=== PATIENT | female | born 1980 | race African-American/Black ===

== ENCOUNTER 2017-05-26 00:40 | Emergency (ER) | payer OTHER ==
[2017-05-26 01:13] VITALS: PULSE 92; TEMP 98.3; BMI 31.8
--- NOTE | 2017-05-26 01:17 | PDOC ---
History of Present Illness - General History Source: Patient Exam Limitations: No Limitations - History of Present Illness Initial Comments: 05/26/17 01:23 The patient is a 37 year old female who is a smoker, with no significant past medical history, who presents to the ED with complaints of chest pain. Pts pain is located at the left sternal border and radiates down her left arm. She does report having shortness of breath prior to presentation. On exam, patient states that it is difficult for her to take a deep breath. She denies taking any oral contraceptives. She reports having a cough productive of yellow sputum. She denies any fever, chills, nausea, vomiting, diarrhea, or abdominal pain. She denies recent travel or sick contacts. <Becky Parish - Last Filed: 05/26/17 01:23> - General History Source: Patient <Gerardo Lan - Last Filed: 05/26/17 02:32> - General Chief Complaint: Pain, Acute Stated Complaint: LEFT ARM PAIN,CHEST PAIN Time Seen by Provider: 05/26/17 01:13 Past History <Becky Parish - Last Filed: 05/26/17 01:23> - Past Medical History Anemia: No Asthma: No Cancer: No Cardiac Disorders: No CVA: No COPD: No CHF: No Dementia: No Diabetes: Yes GI Disorders: No Disorders: No HTN: No Hypercholesterolemia: No Liver Disease: No Seizures: No Thyroid Disease: No - Surgical History Abdominal Surgery: No Appendectomy: No Cardiac Surgery: No Cholecystectomy: No Lung Surgery: No Neurologic Surgery: No Orthopedic Surgery: No - Immunization History Immunization Up to Date: Yes - Psycho/Social/Smoking Cessation Hx Anxiety: No Suicidal Ideation: No Smoking Status: Yes Smoking History: Never smoked Have you smoked in the past 12 months: No Number of Cigarettes Smoked Daily: 20 Cigars Per Day: 0 Information on smoking cessation initiated: No 'Breaking Loose' booklet given: 09/27/14 Hx Alcohol Use: No Drug/Substance Use Hx: No Substance Use Type: Alcohol Hx Substance Use Treatment: No <Gerardo Lan - Last Filed: 05/26/17 02:32> - Past Medical History Allergies/Adverse Reactions: Allergies Allergy/AdvReac Type Severity Reaction Status Date / Time No Known Drug Allergies Allergy Verified 05/26/17 01:12 Home Medications: Ambulatory Orders Guaifenesin AC [Robitussin AC] 10 ml PO Q8H #1 bottle MDD 40 07/25/16 Prednisone [Deltasone -] 60 mg PO DAILY #12 tablet 07/25/16 Azithromycin [Zithromax 250mg Tablets -] 250 mg PO UTDICT #6 tab 05/26/17 Prednisone [Deltasone -] 40 mg PO DAILY #10 tablet 05/26/17 Review of Systems - Review of Systems Able to Perform ROS?: Yes Comments:: 05/26/17 01:24 CONSTITUTIONAL: Absent: fever, chills, diaphoresis, generalized weakness, malaise, loss of appetite HEENT: Absent: rhinorrhea, nasal congestion, throat pain, throat swelling, difficulty swallowing, mouth swelling, ear pain, eye pain, visual Changes CARDIOVASCULAR: Present: chest pain Absent: syncope, palpitations, irregular heart rate, lightheadedness, peripheral edema RESPIRATORY: Present: shortness of breath, cough Absent: dyspnea with exertion, orthopnea, wheezing, stridor, hemoptysis GASTROINTESTINAL: Absent: abdominal pain, abdominal distension, nausea, vomiting, diarrhea, constipation, melena, hematochezia GENITOURINARY: Absent: dysuria, frequency, urgency, hesitancy, hematuria, flank pain, genital pain MUSCULOSKELETAL: Present: left arm pain Absent: arthralgia, joint swelling SKIN: Absent: rash, itching, pallor HEMATOLOGIC/IMMUNOLOGIC: Absent: easy bleeding, easy bruising, lymphadenopathy, frequent infections ENDOCRINE: Absent: unexplained weight gain, unexplained weight loss, heat intolerance, cold intolerance NEUROLOGIC: Absent: headache, focal weakness or paresthesias, dizziness, unsteady gait, seizure, mental status changes, bladder or bowel incontinence PSYCHIATRIC: Absent: anxiety, depression, suicidal or homicidal ideation, hallucinations. <Becky Parish - Last Filed: 05/26/17 01:23> *Physical Exam - Vital Signs Last Vital Signs Temp Pulse Resp BP Pulse Ox 98.3 F 92 H 14 128/107 99 05/26/17 01:12 05/26/17 01:12 05/26/17 01:12 05/26/17 01:12 05/26/17 01:12 - Physical Exam Comments: 05/26/17 01:26 GENERAL: Well developed, well nourished. Awake and alert. No acute distress. HEENT: Normocephalic, atraumatic. PERRLA, EOMI. No conjunctival pallor. Sclera are non- icteric. Moist mucous membranes. Oropharynx is clear. NECK: Supple. Full ROM. No JVD. Carotid pulses 2+ and symmetric, without bruits. No thyromegaly. No lymphadenopathy. CARDIOVASCULAR: Regular rate and rhythm. No murmurs, rubs, or gallops. Distal pulses are 2+ and symmetric. PULMONARY: +Bilateral wheezing and rhonchi but greatest to left hemithorax than to the right. ABDOMINAL: Soft. Non-tender. Non-distended. No rebound or guarding. No organomegaly. Normoactive bowel sounds. MUSCULOSKELETAL Normal range of motion at all joints. No bony deformities or tenderness. No CVA tenderness. EXTREMITIES: No cyanosis. No clubbing. No edema. No calf tenderness. SKIN: Warm and dry. Normal capillary refill. No rashes. No jaundice. NEUROLOGICAL: Alert, awake, appropriate. PSYCHIATRIC: Cooperative. Good eye contact. Appropriate mood and affect. <Becky Parish - Last Filed: 05/26/17 01:23> - Vital Signs Last Vital Signs Temp Pulse Resp BP Pulse Ox 98.3 F 92 H 14 128/107 99 05/26/17 01:12 05/26/17 01:12 05/26/17 01:12 05/26/17 01:12 05/26/17 01:12 <Gerardo Lan - Last Filed: 05/26/17 02:32> Heart Score/ECG Review - ECG Intrepretation Comment:: 05/26/17 01:28 EKG was reviewed by Dr. Lan at 1:15. Impression: Normal sinus rhythm. <Becky Parish - Last Filed: 05/26/17 01:23> ED Treatment Course - LABORATORY CBC & Chemistry Diagram: 05/26/17 01:30 05/26/17 01:30 <Gerardo Lan - Last Filed: 05/26/17 02:32> Medical Decision Making - Medical Decision Making 05/26/17 02:32 Dr. Lan: The scribe's documentation has been prepared under my direction and personally reviewed by me in its entirery. I confirm that the note above accurately reflects all work, treatment, procedures, and medical decision making performed by me. <Gerardo Lan - Last Filed: 05/26/17 02:32> *DC/Admit/Observation/Transfer - Attestations Scribe Attestion: 05/26/17 01:28 Documentation prepared by Becky Parish, acting as medical staff coordinator for Gerardo Lan MD. <Becky Parish - Last Filed: 05/26/17 01:23> - Discharge Dispostion Admit: No <Gerardo Lan - Last Filed: 05/26/17 02:32> Diagnosis at time of Disposition: Bronchitis - Discharge Dispostion Disposition: HOME Condition at time of disposition: Improved - Referrals Referrals: Kailee Carey MD [Primary Care Provider] - - Patient Instructions Printed Discharge Instructions: DI for Acute Bronchitis
[2017-05-26] MEDS ORDERED: predniSONE 20 MG TABLET (UD) PO ONE (01:19)
[2017-05-26] MEDS ORDERED: ALBUTEROL SO4 2.5/IPRATROPIUM 0.5 INH SOL 3 ML VIAL.NEB. NEB STA ×2 (01:19)
[2017-05-26] MEDS ORDERED: MAGNESIUM SULF 50% (8.12 MEQ/2 ML-1 GM VIAL) IVPB ONE (01:25)
[2017-05-26] MEDS ORDERED: methylPREDNISolone NA SUCC 125 MG/2 ML VIAL IVPB ONE (01:25)
[2017-05-26] MEDS ORDERED: MAGNESIUM SULF 50% (8.12 MEQ/2 ML-1 GM VIAL) ONE (01:37)
[2017-05-26] MEDS ORDERED: methylPREDNISolone NA SUCC 125 MG/2 ML VIAL ONE (01:37)
[2017-05-26 01:49] LABS: BASOPHIL 0.6 % (0-2.0); EOSINOPHIL 4.5 % (0-4.5); MCH 27.4 pg (25.7-33.7); MCHC 32.4 g/dl (32.0-36.0); MEAN CELL VOLUME 84.5 fl (80-96); MEAN PLT VOLUME 8.1 fl (7.5-11.1); NEUTROPHILS 63.1 % (42.8-82.8); PLATELET COUNT 336 K/MM3 (134-434); RDW 13.9 % (11.6-15.6); WHITE BLOOD COUNT 10.6 K/mm3 (4.0-10.0)
[2017-05-26 02:11] LABS: ANION GAP 9 (8-16); CALCIUM 8.6 mg/dL (8.5-10.1); CO2 26 mmol/L (21-32); CREATININE 0.8 mg/dL (0.55-1.02); GLUCOSE,RANDOM 112 mg/dL (74-106)
[2017-05-26 02:13] LABS: TROPONIN I < 0.02 ng/ml (0.00-0.05)
[2017-05-26] MEDS ORDERED: AZITHROMYCIN 250 MG TABLET PO STA (02:31)
[2017-05-26] MEDS ORDERED: AZITHROMYCIN 250 MG TABLET ONE (02:36)
[2017-05-26 02:42] VITALS: BP 138/92
--- NOTE | 2017-05-26 14:46 | EKG ---
Test Reason : Blood Pressure : / mmHG Vent. Rate : 089 BPM Atrial Rate : 089 BPM P-R Int : 162 ms QRS Dur : 076 ms QT Int : 364 ms P-R-T Axes : 059 074 067 degrees QTc Int : 442 ms POOR DATA QUALITY, INTERPRETATION MAY BE ADVERSELY AFFECTED NORMAL SINUS RHYTHM NORMAL ECG WHEN COMPARED WITH ECG OF 22-AUG-2015 08:12, NO SIGNIFICANT CHANGE WAS FOUND Confirmed by MEMO CASTILLO MD ([id number]) on 05/26/2017 2:46:09 PM Referred By: Confirmed By:MEMO CASTILLO MD
== END 2017-05-26 02:42 | disposition home or self-care (01) ==
LOC: JER 00:40
PROC: 3E0F7GC Introduction of Other Therapeutic Substance into Respiratory Tract, Via Natural or Artificial Opening (ICD-10-PCS; principal; 2017-05-26)
PROC: 3E0F7GC Introduction of Other Therapeutic Substance into Respiratory Tract, Via Natural or Artificial Opening (ICD-10-PCS; 2017-05-26)
PROC: 3E033GC Introduction of Other Therapeutic Substance into Peripheral Vein, Percutaneous Approach (ICD-10-PCS; 2017-05-26)
PROC: 3E0333Z Introduction of Anti-inflammatory into Peripheral Vein, Percutaneous Approach (ICD-10-PCS; 2017-05-26)
DX: J40 Bronchitis, not specified as acute or chronic (principal); E11.9 Type 2 diabetes mellitus without complications
CPT/HCPCS: 36415; 71020-TC; 80048; 82550; 84484; 84703; 85025; 93005; 93010; 94640; 96374; 96375; 99282-25

== ENCOUNTER 2017-11-08 21:24 | Emergency (ER) | payer OTHER ==
[2017-11-08 21:37] VITALS: BP 158/92; PULSE 108; TEMP 98.5; BMI 33.5
--- NOTE | 2017-11-08 21:37 | PDOC ---
Rapid Medical Evaluation Time Seen by Provider: 11/08/17 21:31 Medical Evaluation: Allergies Allergy/AdvReac Type Severity Reaction Status Date / Time No Known Drug Allergies Allergy Verified 05/26/17 01:12 11/08/17 21:31 The patient presents with a chief complaint of: cough and wheezing for 2 weeks. Using breathing treatments at home with little relief. Afebrile I have performed a brief in-person evaluation of this patient; Pertinent physical exam findings: Diminished at the bases, RRR I have ordered the following: CXR, urine preg, duoneb The patient will proceed to the ED for further evaluation.
[2017-11-08] MEDS ORDERED: ALBUTEROL SO4 2.5/IPRATROPIUM 0.5 INH SOL 3 ML VIAL.NEB. NEB ONE ×2 (21:38→22:14)
[2017-11-08] MEDS ORDERED: guaiFENesin/CODEINE 10 ML UNIT-DOSE CUPS PO ONE (22:07)
[2017-11-08] MEDS ORDERED: predniSONE 20 MG TABLET (UD) PO ONE (22:07)
[2017-11-08] MEDS ORDERED: predniSONE 20 MG TABLET (UD) ONE (22:10)
--- NOTE | 2017-11-08 22:12 | PDOC ---
History of Present Illness - General Chief Complaint: Asthma Stated Complaint: COUGH Time Seen by Provider: 11/08/17 21:31 History Source: Patient Exam Limitations: No Limitations - History of Present Illness Initial Comments: 11/08/17 22:07 history of asthma no intubations or hospitalizations states cough and cold for one week now with continued cough no fever , speaking clearly. Pt using nebulizer and inhaler at home. Timing/Duration: reports: getting worse Severity: reports: mild Past History - Past Medical History Allergies/Adverse Reactions: Allergies Allergy/AdvReac Type Severity Reaction Status Date / Time No Known Drug Allergies Allergy Verified 11/08/17 21:37 Home Medications: Ambulatory Orders Albuterol Sulfate [Proair H[facility]] [facility] 11/08/17 Glycopyrrolate/Formoterol Fum [Bevespi Aerosphere Inhaler] 10.7 gm [facility] 11/25 Prednisone [Deltasone -] 40 mg PO DAILY #10 tablet 11/08/17 Anemia: No Asthma: No Cancer: No Cardiac Disorders: No CVA: No COPD: No CHF: No Dementia: No Diabetes: Yes GI Disorders: No Disorders: No HTN: No Hypercholesterolemia: No Liver Disease: No Seizures: No Thyroid Disease: No - Surgical History Abdominal Surgery: No Appendectomy: No Cardiac Surgery: No Cholecystectomy: No Lung Surgery: No Neurologic Surgery: No Orthopedic Surgery: No - Immunization History Immunization Up to Date: Yes - Suicide/Smoking/Psychosocial Hx Smoking Status: Yes Smoking History: Never smoked Have you smoked in the past 12 months: No Number of Cigarettes Smoked Daily: 20 Cigars Per Day: 0 Information on smoking cessation initiated: No 'Breaking Loose' booklet given: 09/27/14 Hx Alcohol Use: No Drug/Substance Use Hx: No Substance Use Type: Alcohol Hx Substance Use Treatment: No Respiratory Specific PMHX - Complaint Specific PMHX Bronchitis: Yes Review of Systems - Review of Systems Able to Perform ROS?: Yes Is the patient limited Bahamian proficient: No Constitutional: No: Symptoms Reported HEENTM: No: Symptoms Reported Respiratory: Yes: Symptoms reported, Cough Cardiac (ROS): Yes: Chest Pain *Physical Exam - Vital Signs Last Vital Signs Temp Pulse Resp BP Pulse Ox 98.5 F 108 H 20 158/92 100 11/08/17 21:32 11/08/17 21:32 11/08/17 21:32 11/08/17 21:32 11/08/17 21:32 - Physical Exam General Appearance: Yes: Nourished, Appropriately Dressed HEENT: positive: EOMI, LINDA, Normal ENT Inspection, TMs Normal, Pharynx Normal Neck: negative: Lymphadenopathy (R), Lymphadenopathy (L) Respiratory/Chest: positive: Normal Breath Sounds, Wheezing (exp ). negative: Accessory Muscle Use, Crackles, Rhonchi, Stridor Cardiovascular: positive: Regular Rate Gastrointestinal/Abdominal: positive: Normal Bowel Sounds, Soft Musculoskeletal: positive: Normal Inspection Extremity: positive: Normal Capillary Refill, Normal Inspection, Normal Range of Motion Integumentary: positive: Normal Color, Dry, Warm Neurologic: positive: feed handler II-XII NML intact, Fully Oriented, Alert, Normal Mood/ Affect, Normal Response, Motor Strength 03/12 ED Treatment Course - Medications Given in the ED: ED Medications Discontinued Medications Generic Name Dose Route Start Last Admin Trade Name Freq PRN Reason Stop Dose Admin Albuterol/Ipratropium 1 amp 11/08/17 21:38 11/08/17 21:54 Duoneb - NEB 11/08/17 21:39 1 amp ONCE ONE Administration Medical Decision Making - Medical Decision Making 11/08/17 22:11 cc: cough wheezing for 1 week cough and cold for 2 weeks no fever no vomiting wheezing noted in triage nebulizer given no history of intubations 11/08/17 22:48 pt feels better after the nebulizers wheezing has resolved will dc home with strict follow up this week pt understands the plan of care all questions asked and answered *DC/Admit/Observation/Transfer Diagnosis at time of Disposition: Asthma exacerbation Qualifiers: Asthma severity: mild Asthma persistence: intermittent Qualified Code(s): J45.21 - Mild intermittent asthma with (acute) exacerbation - Discharge Dispostion Disposition: HOME Condition at time of disposition: Improved - Prescriptions Prescriptions: Prednisone [Deltasone -] 40 mg PO DAILY #10 tablet - Referrals Referrals: Kailee Carey MD [Primary Care Provider] - - Patient Instructions Printed Discharge Instructions: Asthma -- Adult Additional Instructions: follow with your doctor this week drink at least 2 liters of water a day next dose prednisone tomorrow use your nebulizer every 4hrs return to ER if any worsening symptoms - Post Discharge Activity
[2017-11-08] MEDS ORDERED: guaiFENesin/CODEINE 5 ML UNIT-DOSE CUPS PO ONE (22:13)
== END 2017-11-08 22:49 | disposition home or self-care (01) ==
LOC: JERFT 21:24
PROC: 3E0F7GC Introduction of Other Therapeutic Substance into Respiratory Tract, Via Natural or Artificial Opening (ICD-10-PCS; principal; 2017-11-08)
DX: J45.21 Mild intermittent asthma with (acute) exacerbation (principal)
CPT/HCPCS: 71046-TC; 84703; 94640; 99281-25

== ENCOUNTER 2018-04-17 15:46 | Emergency (ER) | payer OTHER ==
[2018-04-17 15:59] VITALS: BMI 32.5
--- NOTE | 2018-04-17 16:16 | PDOC ---
History of Present Illness - General Chief Complaint: Headache Stated Complaint: HEADACHE,FREQUENT URINATION. Time Seen by Provider: 04/17/18 16:01 History Source: Patient Exam Limitations: No Limitations - History of Present Illness Initial Comments: CHIEF COMPLAINT: HISTORY OF PRESENT ILLNESS: Vital signs on arrival are notable for pulse of 108. REVIEW OF SYSTEMS: GENERAL/CONSTITUTIONAL: Subjective fever/chills. No weakness. No weight change. HEAD, EYES, EARS, NOSE AND THROAT: No change in vision. No ear pain or discharge. No sore throat. CARDIOVASCULAR: No chest pain or shortness of breath. RESPIRATORY: No cough, wheezing, or hemoptysis. GASTROINTESTINAL: See history of present illness. GENITOURINARY: No dysuria, frequency, or change in urination. MUSCULOSKELETAL: No joint or muscle swelling or pain. No neck or back pain. SKIN: No rash or easy bruising. NEUROLOGIC: No headache, vertigo, loss of consciousness, or loss of sensation. PHYSICAL EXAM: GENERAL: The patient is awake, alert, and fully oriented, in no acute distress. HEAD: Normal with no signs of trauma. ENT: Pupils equal, round and reactive to light, extraocular movements intact, sclera anicteric, conjunctiva clear. Neck supple. LUNGS: Clear to auscultation bilaterally. Normal excursion. No respiratory distress or use of accessory muscles. CV: RRR, S1/S2, no MRG. Cap refill < 2 sec. ABDOMEN: Soft, non-distended, non-tender even to deep palpation, no hepatomegaly or splenomegaly, no masses. EXTREMITIES: Normal range of motion, no edema. NEUROLOGICAL: Normal speech, normal gait. CN II-XII grossly intact. SKIN: Warm, dry, normal turgor, no rashes or lesions noted. Past History - Past Medical History Allergies/Adverse Reactions: Allergies Allergy/AdvReac Type Severity Reaction Status Date / Time sulfamethoxazole Allergy Verified 04/17/18 15:55 [From Bactrim] trimethoprim [From Bactrim] Allergy Verified 04/17/18 15:55 Home Medications: Ambulatory Orders Albuterol Sulfate [Proair Hfa] 8.5 gm [facility] 11/08/17 Glycopyrrolate/Formoterol Fum [Bevespi Aerosphere Inhaler] 10.7 gm [facility] 11/25 predniSONE [Deltasone -] 40 mg PO DAILY #10 tablet 11/08/17 Anemia: No Asthma: No Cancer: No Cardiac Disorders: No CVA: No COPD: No CHF: No Dementia: No Diabetes: Yes (DURING ) GI Disorders: No Disorders: No HTN: No Hypercholesterolemia: No Liver Disease: No Seizures: No Thyroid Disease: No - Surgical History Abdominal Surgery: No Appendectomy: No Cardiac Surgery: No Cholecystectomy: No Lung Surgery: No Neurologic Surgery: No Orthopedic Surgery: No - Immunization History Immunization Up to Date: Yes - Suicide/Smoking/Psychosocial Hx Smoking Status: Yes Smoking History: Current every day smoker Have you smoked in the past 12 months: Yes Number of Cigarettes Smoked Daily: 7 Cigars Per Day: 0 Information on smoking cessation initiated: No 'Breaking Loose' booklet given: 09/27/14 Hx Alcohol Use: No Drug/Substance Use Hx: No Substance Use Type: Alcohol Hx Substance Use Treatment: No *Physical Exam - Vital Signs Last Vital Signs Temp Pulse Resp BP Pulse Ox 98.2 F 89 19 118/76 99 04/17/18 15:55 04/17/18 15:55 04/17/18 15:55 04/17/18 15:55 04/17/18 15:55 Medical Decision Making - Medical Decision Making A/P:
[2018-04-17 16:22] LABS: URINE APPEARANCE CLEAR; URINE BILIRUBIN NEGATIVE (<2.0 mg/dL); URINE BLOOD NEGATIVE (NEGATIVE); URINE COLOR LTYELLOW; URINE GLUCOSE (UA) 2+ (NEGATIVE); URINE KETONE NEGATIVE (NEGATIVE); URINE NITRITE NEGATIVE (NEGATIVE); URINE PROTEIN NEGATIVE (NEGATIVE)
[2018-04-17 16:27] LABS: URINE LEUK ESTERASE 2+ (NEGATIVE)
[2018-04-17 16:28] LABS: EPI CELLS RARE /HPF (FEW); URINE MUCUS RARE
[2018-04-17] MEDS ORDERED: KETOROLAC TROMETHAMINE 30 MG/1 ML VIAL IVPUSH ONE (17:06)
[2018-04-17] MEDS ORDERED: SODIUM CHLORIDE 1,000 ML IV STA (17:06)
--- NOTE | 2018-04-17 17:11 | PDOC ---
History of Present Illness - General Chief Complaint: Headache Stated Complaint: HEADACHE,FREQUENT URINATION. Time Seen by Provider: 04/17/18 16:01 History Source: Patient Exam Limitations: No Limitations - History of Present Illness Initial Comments: 04/17/18 17:00 38-year-old female diagnosed with gestational diabetes 2 years ago presents to the ED with complaints of generalized head pressure along with blurry vision since this morning. Patient states does have same presentation with her migraines which was diagnosed by her PMD Dr. Espinal but states normally takes Motrin eats something and symptoms resolved. When symptoms continue she decided to have her sugar which was noted to be 250. Patient also states the past 2 days has had urinary frequency and increased hunger without lower extremity edema, chest pain, shortness of breath, dizziness, weakness, or change in mentation. Timing/Duration: constant Severity: mild Associated Symptoms: reports: headaches. denies: nausea/vomiting, weakness Past History - Travel Traveled outside of the country in the last 30 days: No - Past Medical History Allergies/Adverse Reactions: Allergies Allergy/AdvReac Type Severity Reaction Status Date / Time sulfamethoxazole Allergy Verified 04/17/18 15:55 [From Bactrim] trimethoprim [From Bactrim] Allergy Verified 04/17/18 15:55 Home Medications: Ambulatory Orders Albuterol Sulfate Inhaler - [Ventolin Hfa Inhaler -] 2 inh PO Q4H PRN 04/17/18 Famotidine [Pepcid] 40 mg PO DAILY 04/17/18 Nitrofurantoin Monohyd/M-Cryst [Macrobid -] 100 mg PO BID #14 capsule 04/17/18 Omeprazole Magnesium [Prilosec Otc] 20 mg PO DAILY 04/17/18 Anemia: No Asthma: No Cancer: No Cardiac Disorders: No CVA: No COPD: No CHF: No Dementia: No Diabetes: Yes (DURING ) GI Disorders: No Disorders: No HTN: No Hypercholesterolemia: No Liver Disease: No Seizures: No Thyroid Disease: No - Surgical History Abdominal Surgery: No Appendectomy: No Cardiac Surgery: No Cholecystectomy: No Lung Surgery: No Neurologic Surgery: No Orthopedic Surgery: No - Immunization History Immunization Up to Date: Yes - Suicide/Smoking/Psychosocial Hx Smoking Status: Yes Smoking History: Current every day smoker Have you smoked in the past 12 months: Yes Number of Cigarettes Smoked Daily: 7 Cigars Per Day: 0 Information on smoking cessation initiated: No 'Breaking Loose' booklet given: 09/27/14 Hx Alcohol Use: No Drug/Substance Use Hx: No Substance Use Type: Alcohol Hx Substance Use Treatment: No Patient Lives Alone: No Lives with/in: spouse/SO Review of Systems - Review of Systems Able to Perform ROS?: No Constitutional: No: Symptoms Reported HEENTM: Yes: Blurred Vision Respiratory: No: Symptoms reported Cardiac (ROS): No: Symptoms Reported ABD/GI: No: Symptoms Reported : No: Symptoms Reported Musculoskeletal: No: Symptoms Reported Integumentary: No: Symptoms Reported Neurological: Yes: Headache. No: Dizziness Endocrine: No: Symptoms Reported Hematologic/Lymphatic: No: Symptoms Reported *Physical Exam - Vital Signs Last Vital Signs Temp Pulse Resp BP Pulse Ox 98.2 F 89 19 118/76 99 04/17/18 15:55 04/17/18 15:55 04/17/18 15:55 04/17/18 15:55 04/17/18 15:55 - Physical Exam General Appearance: Yes: Nourished, Appropriately Dressed. No: Apparent Distress HEENT: positive: EOMI, LINDA, TMs Normal, Pharynx Normal. negative: Pale Conjunctivae Neck: positive: Supple. negative: Decreased range of motion Respiratory/Chest: positive: Lungs Clear, Normal Breath Sounds. negative: Respiratory Distress, Accessory Muscle Use Cardiovascular: positive: Regular Rhythm, Regular Rate. negative: Murmur Gastrointestinal/Abdominal: positive: Soft. negative: Tenderness Extremity: positive: Normal Capillary Refill. negative: Pedal Edema Integumentary: positive: Normal Color, Warm, Moist Neurologic: positive: supervisor diagnostic II-XII NML intact, Normal Mood/Affect, Motor Strength / ED Treatment Course - LABORATORY CBC & Chemistry Diagram: 04/17/18 17:11 04/17/18 17:11 - ADDITIONAL ORDERS Additional order review: Laboratory Results 04/17/18 16:13 Urine Color Ltyellow Urine Appearance Clear Urine pH 7.0 D Ur Specific [place] 1.024 Urine Protein Negative Urine Glucose (UA) 2+ H Urine Ketones Negative Urine Blood Negative Urine Nitrite Negative Urine Bilirubin Negative Urine Urobilinogen 2.0 H Ur Leukocyte Esterase 2+ H Urine WBC (Auto) 24 Urine RBC (Auto) 2 Ur Epithelial Cells Rare Urine Mucus Rare Medical Decision Making - Medical Decision Making 04/17/18 17:12 Patient here for evaluation of polyuria and polydipsia along with intermittent blurry vision and headaches for the past day. Patient states does have blurry vision and headaches with her migraines which was diagnosed a few years ago by Dr. Espinal patient states is not followed by a neurologist nor has she had a head CT for the above complaints. Patient concerning for DKA secondary to her gestational diabetes along with intracranial pathology. Patient added for labs, head CT and analgesic. 04/17/18 18:10 Laboratory Tests 04/17/18 04/17/18 04/17/18 16:13 17:11 17:11 WBC 13.4 H Hgb 13.0 D Hct 39.9 VBG pH 7.36 POC VBG pO2 22.3 L Mixed VBG HCO3 27.4 H Urine HCG, Qual Negative 04/17/18 18:32 Laboratory Tests 04/17/18 17:11 Sodium 140 Potassium 4.1 Chloride 103 Carbon Dioxide 28 Anion Gap 9 BUN 14 Random Glucose 191 H Calcium 8.3 L Magnesium 1.9 Total Bilirubin 0.2 D AST 17 ALT 36 Total Protein 6.3 L Albumin 3.5 Acetone, Qual Pending 04/17/18 18:40 Patient with positive urinary tract infection patient will be discharged home on Macrobid if CT and acetone is negative. Patient states feeling much better after receiving Toradol IV fluids. *DC/Admit/Observation/Transfer - Referrals Referrals: Kailee Carey MD [Primary Care Provider] - - Patient Instructions - Post Discharge Activity
[2018-04-17 17:36] LABS: VENOUS PC02 49.7 mmHg (38-52); VENOUS PH 7.36 (7.32-7.42); VENOUS PO2 22.3 mmHg (28-48)
[2018-04-17 17:45] LABS: BASO % 0.3 % (0-2.0); EOS % 2.2 % (0-4.5); HEMATOCRIT 39.9 % (32.4-45.2); LYMPH % 16.5 % (8-40); MCH 27.6 pg (25.7-33.7); MCHC 32.5 g/dl (32.0-36.0); MEAN CELL VOLUME 84.9 fl (80-96); MEAN PLT VOLUME 8.6 fl (7.5-11.1); MONO % 6.6 % (3.8-10.2); NEUT % 74.4 % (42.8-82.8); PLATELET COUNT 321 K/MM3 (134-434); RDW 13.8 % (11.6-15.6); WHITE BLOOD COUNT 13.4 K/mm3 (4.0-10.0)
[2018-04-17] MEDS ORDERED: KETOROLAC TROMETHAMINE 30 MG/1 ML VIAL ONE (17:47)
[2018-04-17 17:51] LABS: HCG,QUALITATIVE URINE NEGATIVE
[2018-04-17 18:08] LABS: ALBUMIN 3.5 g/dl (3.4-5.0); ANION GAP 9 (8-16); BLOOD UREA NITROGEN 14 mg/dL (7-18); CALCIUM 8.3 mg/dL (8.5-10.1); CHLORIDE 103 mmol/L (98-107); CO2 28 mmol/L (21-32); CREATININE 0.7 mg/dL (0.55-1.02); GLUCOSE,RANDOM 191 mg/dL (74-106); MAGNESIUM 1.9 mg/dL (1.8-2.4); POTASSIUM 4.1 mmol/L (3.5-5.1); SGOT/AST 17 U/L (15-37); SGPT/ALT 36 U/L (12-78); SODIUM 140 mmol/L (136-145)
[2018-04-17 18:09] LABS: ALK PHOS 100 U/L (45-117); BILIRUBIN,TOTAL 0.2 mg/dL (0.2-1.0); TOT PROT 6.3 g/dl (6.4-8.2)
[2018-04-17 18:43] VITALS: BP 119/68; PULSE 75; TEMP 98.6
[2018-04-17 19:27] LABS: ACETONE SERUM NEGATIVE (NEGATIVE)
--- NOTE | 2018-04-17 20:04 | PDOC ---
*Physical Exam - Vital Signs Last Vital Signs Temp Pulse Resp BP Pulse Ox 98.6 F 75 18 119/68 100 04/17/18 18:42 04/17/18 18:42 04/17/18 18:42 04/17/18 18:42 04/17/18 18:42 ED Treatment Course - LABORATORY CBC & Chemistry Diagram: 04/17/18 17:11 04/17/18 17:11 - ADDITIONAL ORDERS Additional order review: Laboratory Results 04/17/18 04/17/18 04/17/18 17:11 17:11 16:13 VBG pH 7.36 POC VBG pCO2 49.7 POC VBG pO2 22.3 L Mixed VBG HCO3 27.4 H Sodium 140 Potassium 4.1 Chloride 103 Carbon Dioxide 28 Anion Gap 9 BUN 14 Creatinine 0.7 Creat Clearance w eGFR > 60 Random Glucose 191 H Calcium 8.3 L Magnesium 1.9 Total Bilirubin 0.2 D AST 17 ALT 36 Alkaline Phosphatase 100 Total Protein 6.3 L Albumin 3.5 Urine Color Ltyellow Urine Appearance Clear Urine pH 7.0 D Ur Specific Eagle 1.024 Urine Protein Negative Urine Glucose (UA) 2+ H Urine Ketones Negative Urine Blood Negative Urine Nitrite Negative Urine Bilirubin Negative Urine Urobilinogen 2.0 H Ur Leukocyte Esterase 2+ H Urine WBC (Auto) 24 Urine RBC (Auto) 2 Ur Epithelial Cells Rare Urine Mucus Rare Urine HCG, Qual Negative Acetone, Qual Negative L 04/17/18 17:11 RBC 4.70 MCV 84.9 MCHC 32.5 RDW 13.8 MPV 8.6 Neutrophils % 74.4 Lymphocytes % 16.5 D Monocytes % 6.6 Eosinophils % 2.2 Basophils % 0.3 - Medications Given in the ED: ED Medications Discontinued Medications Generic Name Dose Route Start Last Admin Trade Name Freq PRN Reason Stop Dose Admin Sodium Chloride 1,000 mls @ 1,000 mls/hr 04/17/18 17:06 04/17/18 17:45 Normal Saline - IV 04/17/18 18:05 1,000 mls/hr ASDIR STA Administration Ketorolac Tromethamine 30 mg 04/17/18 17:06 04/17/18 18:03 Toradol Injection - IVPUSH 04/17/18 17:07 30 mg ONCE ONE Administration Medical Decision Making - Medical Decision Making 04/17/18 20:04 Patient endorsed to me by HALEY Valentino to follow CT scan and disposition. seen and evaluated, feels better, headache is resolved. Noted to have WBC on the urine will give Macrobid. CT scan with no acute findings DC home Patient Full Name: ERIC ANDRES Patient Accession No: [id number] Patient : 1980 Reason for Exam: headache Referring Physician: THOMAS RUIZ Patient Name: DMITRY REYES THIS IS A PRELIMINARY REPORT FROM [facility] DATE OF SERVICE: 2018-04-17 18:08:08 IMAGES: 134 EXAM: HEAD CT WITHOUT CONTRAST HISTORY: CT head without contrast COMPARISON: Headache FINDINGS: There is no evidence of acute infarction. There is no hemorrhage. No mass lesion is seen. There is no skull fracture. Visualized portions of the paranasal sinuses are essentially clear. Mastoid air cells are normally pneumatized. Individualized dose optimization techniques were used for this CT. THIS DOCUMENT HAS BEEN ELECTRONICALLY SIGNED Richardson Dumont MD 04/17/2018 19:10 DERIK Dailey Please call Imaging Chief Security Officer [phone]) with questions. INTERPRETING RADIOLOGIST: Richardson Dumont MD Electronically Signed: Apr 17, 2018 07:11PM EDT 04/17/18 20:14 I discussed the physical exam findings, ancillary test results and final diagnoses with the patient. I answered all of the patient's questions. The patient was satisfied with the care received and felt comfortable with the discharge plan and treatment plan. The Patient agrees to follow up with the primary care physician within 24-72 hours. *DC/Admit/Observation/Transfer Diagnosis at time of Disposition: Headache Qualifiers: Headache type: unspecified Headache chronicity pattern: episodic headache Intractability: not intractable Qualified Code(s): R51 - Headache UTI (urinary tract infection) Qualifiers: Urinary tract infection type: site unspecified Hematuria presence: without hematuria Qualified Code(s): N39.0 - Urinary tract infection, site not specified - Discharge Dispostion Disposition: HOME Condition at time of disposition: Stable - Prescriptions Prescriptions: Nitrofurantoin Monohyd/M-Cryst [Macrobid -] 100 mg PO BID #14 capsule - Referrals Referrals: Kailee Carey MD [Primary Care Provider] - - Patient Instructions Printed Discharge Instructions: DI for Headache, DI for Urinary Tract Infection (UTI) Additional Instructions: Your Discharge Instructions: You must call primary care physician within 24 hours to arrange follow-up. Return to the Emergency Department with any new, persistent or worsening symptoms, for fever, chills, SOB, dizziness or any other concerning changes that may occur. - Post Discharge Activity
[2018-04-17] MEDS ORDERED: NITROFURANTOIN MACROCRYSTAL 50 MG CAPSULE (FP) PO SCH (20:30)
== END 2018-04-17 20:32 | disposition home or self-care (01) ==
LOC: JER 15:46 → JERFT 15:46 → JER 20:32
PROC: 3E0333Z Introduction of Anti-inflammatory into Peripheral Vein, Percutaneous Approach (ICD-10-PCS; principal; 2018-04-17)
PROC: 3E0337Z Introduction of Electrolytic and Water Balance Substance into Peripheral Vein, Percutaneous Approach (ICD-10-PCS; 2018-04-17)
DX: N39.0 Urinary tract infection, site not specified (principal); R51 Headache; F17.200 Nicotine dependence, unspecified, uncomplicated; Z88.2 Allergy status to sulfonamides; Z88.1 Allergy status to other antibiotic agents
CPT/HCPCS: 36415; 70450-TC; 80053; 81003; 81015; 82009; 82803; 83735; 84703; 85025; 87086; 96361; 96374; 99285-25; J7030

== ENCOUNTER 2019-08-07 11:24 | Emergency (ER) | payer OTHER ==
[2019-08-07 11:59] VITALS: BP 116/65; PULSE 113; TEMP 98.3; BMI 33.5
[2019-08-07] MEDS ORDERED: KETOROLAC TROMETHAMINE 60 MG/2 ML VIAL IM ONE (12:57)
[2019-08-07] MEDS ORDERED: ALBUTEROL SO4 2.5/IPRATROPIUM 0.5 INH SOL 3 ML VIAL.NEB. NEB ONE ×2 (12:57→13:07)
[2019-08-07] MEDS ORDERED: CYCLOBENZAPRINE HCL 10 MG TABLET (FP) PO ONE (12:58)
--- NOTE | 2019-08-07 13:04 | PDOC ---
History of Present Illness - General Stated Complaint: CONGESTED/ COUGHING/ LOWER BACK PAIN Time Seen by Provider: 08/07/19 12:18 History Source: Patient Exam Limitations: No Limitations - History of Present Illness Initial Comments: 08/07/19 12:58 39 year old female with medical history of DM asthma, and surgical history of left shoulder surgery presents with exacerbation of back pain x 1 week. Patient reports productive coughing with yellowish phlegm x 1 one week, states forceful coughing exacerbated her lower back pain. Reports pain radiates down right leg. Denies numbness or tingling in toes. Using asthma pump but coughing persist. 08/07/19 12:59 Occurred: reports: last week Severity: reports: moderate Pain Location: reports: back Method of Injury: Yes: other (coughing forcefully) Modifying Factors: improves with: immobilization, pain medication Loss of Consciousness: no loss of consciousness Associated Symptoms (Fall): denies symptoms Past History - Travel Traveled outside of the country in the last 30 days: No Close contact w/someone who was outside of country & ill: No - Past Medical History Allergies/Adverse Reactions: Allergies Allergy/AdvReac Type Severity Reaction Status Date / Time sulfamethoxazole Allergy Verified 08/07/19 11:54 [From Bactrim] trimethoprim [From Bactrim] Allergy Verified 08/07/19 11:54 Home Medications: Ambulatory Orders Albuterol Sulfate Inhaler - [Ventolin Hfa Inhaler -] 2 inh PO Q4H PRN 04/17/18 Omeprazole Magnesium [Prilosec Otc] 20 mg PO DAILY 04/17/18 Naproxen [Naprosyn -] 500 mg PO BID #20 tablet 05/06/18 Azithromycin [Zithromax 250mg Tablets -] 250 mg PO UTDICT #6 tab 08/07/19 Cyclobenzaprine HCl [Flexeril -] 10 mg PO HS #7 tablet 08/07/19 Ibuprofen 600 mg PO TID PRN #21 tablet 08/07/19 Anemia: No Asthma: Yes Cancer: No Cardiac Disorders: No CVA: No COPD: No CHF: No Dementia: No Diabetes: Yes (DURING ) GI Disorders: Yes (GERD) Disorders: No HTN: No Hypercholesterolemia: No Liver Disease: No Seizures: No Thyroid Disease: No - Surgical History Abdominal Surgery: No Appendectomy: No Cardiac Surgery: No Cholecystectomy: No Lung Surgery: No Neurologic Surgery: No Orthopedic Surgery: No - Immunization History Immunization Up to Date: Yes - Psycho Social/Smoking Cessation Hx Smoking Status: Yes Smoking History: Never smoked Have you smoked in the past 12 months: No Number of Cigarettes Smoked Daily: 6 Cigars Per Day: 0 Information on smoking cessation initiated: Yes 'Breaking Loose' booklet given: 09/27/14 Hx Alcohol Use: No Drug/Substance Use Hx: No Substance Use Type: Alcohol Hx Substance Use Treatment: No Review of Systems - Review of Systems Able to Perform ROS?: Yes Is the patient limited Indonesian proficient: No Constitutional: No: Chills, Fever, Weakness HEENTM: No: Ear Discharge, Nose Pain, Nose Congestion, Throat Swelling Respiratory: Yes: Cough. No: Orthopnea, Shortness of Breath, SOB at Rest Cardiac (ROS): No: Chest Pain, Lightheadedness, Palpitations ABD/GI: No: Constipated, Difficulty Swallowing, Poor Appetite, Poor Fluid Intake , Abdominal cramping : No: Burning, Dysuria, Testicular Pain Musculoskeletal: Yes: Back Pain. No: Gout, Joint Pain Integumentary: No: Erythema, Flushing, Lesions Neurological: No: Numbness, Paresthesia, Seizure, Tingling *Physical Exam - Vital Signs Last Vital Signs Temp Pulse Resp BP Pulse Ox 98.3 F 113 H 18 116/65 96 08/07/19 11:57 08/07/19 11:57 08/07/19 11:57 08/07/19 11:57 08/07/19 11:57 - Physical Exam General Appearance: Yes: Nourished HEENT: positive: LINDA. negative: Normal ENT Inspection, TMs Normal, Pharynx Normal Neck: negative: Lymphadenopathy (R), Lymphadenopathy (L) Respiratory/Chest: positive: Lungs Clear Cardiovascular: positive: Regular Rhythm, Regular Rate Musculoskeletal: positive: Other (+ tenderness in lumbar region) Neurologic: positive: collection technician II-XII NML intact, Fully Oriented, Alert Medical Decision Making - Medical Decision Making 08/07/19 13:03 39 year old female with medical history of DM asthma, and surgical history of left shoulder surgery presents with exacerbation of back pain x 1 week. Patient reports productive coughing with yellowish phlegm x 1 one week, states forceful coughing exacerbated her lower back pain. # asthma exacerbation -duo neb -encouraged use of pump as directed -azithromycin prescribed due to length of illness and h/o being a smoker #lower back pain -analgesia, -muscle relaxant 08/07/19 19:43 Discharge - Discharge Information Problems reviewed: Yes Clinical Impression/Diagnosis: Smoking Asthma exacerbation Qualifiers: Asthma severity: mild Asthma persistence: intermittent Qualified Code(s): J45.21 - Mild intermittent asthma with (acute) exacerbation Low back pain Qualifiers: Chronicity: acute Back pain laterality: bilateral Sciatica presence: with sciatica Sciatica laterality: sciatica of right side Qualified Code(s): M54.41 - Lumbago with sciatica, right side Condition: Good Disposition: HOME - Admission No - Additional Discharge Information Prescriptions: Azithromycin [Zithromax 250mg Tablets -] 250 mg PO UTDICT #6 tab Cyclobenzaprine HCl [Flexeril -] 10 mg PO HS #7 tablet Ibuprofen 600 mg PO TID PRN #21 tablet PRN Reason: Back Pain - Follow up/Referral Referrals: Kailee Carey MD [Primary Care Provider] - - Patient Discharge Instructions Patient Printed Discharge Instructions: DI for Low Back Pain Additional Instructions: Call ortho for follow up appointment for back Do not remain laying in bed for more than 72 hours May apply warm compress to area for 20 minutes 3 to 4 times daily Do not take muscle relaxant and drive - Post Discharge Activity Work/Back to School Note: Back to Work
[2019-08-07] MEDS ORDERED: CYCLOBENZAPRINE HCL 10 MG TABLET (FP) ONE (13:07)
[2019-08-07] MEDS ORDERED: KETOROLAC TROMETHAMINE 60 MG/2 ML VIAL ONE (13:07)
== END 2019-08-07 13:49 | disposition home or self-care (01) ==
LOC: JERFT 11:24
PROC: 3E0F7GC Introduction of Other Therapeutic Substance into Respiratory Tract, Via Natural or Artificial Opening (ICD-10-PCS; principal; 2019-08-07)
PROC: 3E0233Z Introduction of Anti-inflammatory into Muscle, Percutaneous Approach (ICD-10-PCS; 2019-08-07)
DX: J45.21 Mild intermittent asthma with (acute) exacerbation (principal); M54.41 Lumbago with sciatica, right side; K21.9 Gastro-esophageal reflux disease without esophagitis; Z86.32 Personal history of gestational diabetes; Z88.2 Allergy status to sulfonamides
CPT/HCPCS: 94640; 96372; 99281-25

== ENCOUNTER 2022-03-08 06:36 | Inpatient (IN) | payer OTHER ==
[2022-03-08] MEDS ORDERED: LIDOCAINE 5% TOPICAL PATCH TP ONE (08:19)
[2022-03-08] MEDS ORDERED: KETOROLAC TROMETHAMINE 30 MG/1 ML VIAL IVPUSH ONE (08:19)
[2022-03-08] MEDS ORDERED: diazePAM 5 MG TABLET PO ONE (08:20)
[2022-03-08] MEDS ORDERED: DEXAMETHASONE SOD PHOSPHATE 10 MG/1 ML VIAL IVPUSH ONE (08:20)
[2022-03-08] MEDS ORDERED: METHOCARBAMOL 500 MG TABLET PO ONE (08:25)
[2022-03-08] MEDS ORDERED: ACETAMINOPHEN 1000 MG/100 ML BAG IVPB ONE (08:26)
[2022-03-08] MEDS ORDERED: KETOROLAC TROMETHAMINE 15 MG/ML VIAL ONE (08:30)
[2022-03-08] MEDS ORDERED: METHOCARBAMOL 500 MG TABLET ONE ×2 (08:30→22:02)
[2022-03-08] MEDS ORDERED: LIDOCAINE 5% TOPICAL PATCH ONE (08:30)
[2022-03-08] MEDS ORDERED: diazePAM 5 MG TABLET ONE (08:30)
[2022-03-08] MEDS ORDERED: ACETAMINOPHEN INJECTION 100 ML IVPB ONE (08:43)
[2022-03-08 09:16] LABS: BASO % 0.4 % (0-2.0); EOS % 2.6 % (0-4.5); HEMATOCRIT 39.4 % (32.4-45.2); LYMPH % 20.9 % (8-40); MCHC 33.1 g/dl (32.0-36.0); MEAN CELL VOLUME 84.7 fl (80-96); MEAN PLT VOLUME 7.7 fl (7.5-11.1); NEUT % 68.1 % (42.8-82.8); PLATELET COUNT 368 10^3/uL (134-434); RBC 4.65 M/mm3 (3.60-5.2); RDW 13.7 % (11.6-15.6); WHITE BLOOD COUNT 7.7 K/mm3 (4.0-10.0)
[2022-03-08 09:25] LABS: CALCIUM 8.7 mg/dL (8.5-10.1)
[2022-03-08 09:29] LABS: CREATININE 0.7 mg/dL (0.55-1.3)
[2022-03-08] MEDS: INSULIN SLIDING SCALE (NOVOLOG) 1 VIAL SQ SCH ×3 (11:34→22:32)
[2022-03-08] MEDS ORDERED: GABAPENTIN 100 MG CAPSULE ONE ×2 (13:14→22:02)
[2022-03-08] MEDS: GABAPENTIN 100 MG CAPSULE PO SCH ×2 (13:17→22:32)
[2022-03-08] MEDS ORDERED: GABAPENTIN 100 MG CAPSULE PO SCH (14:00)
[2022-03-08] MEDS: oxyCODONE HCL 5 MG TABLET PO PRN (19:35)
[2022-03-08] MEDS ORDERED: oxyCODONE HCL 5 MG TABLET ONE (19:37)
[2022-03-08] MEDS ORDERED: LIDOCAINE PATCH REMOVAL MC ONE (22:00)
[2022-03-08] MEDS: INSULIN (LEVEMIR) 100 UNITS/ML UNITS SQ SCH (22:31)
[2022-03-08] MEDS: METHOCARBAMOL 500 MG TABLET PO SCH (22:32)
[2022-03-09] MEDS: oxyCODONE HCL 5 MG TABLET PO PRN ×4 (01:15→18:33)
[2022-03-09 05:38] VITALS: BMI 32.3
[2022-03-09] MEDS: GABAPENTIN 100 MG CAPSULE PO SCH ×3 (06:28→22:27)
[2022-03-09] MEDS: INSULIN SLIDING SCALE (NOVOLOG) 1 VIAL SQ SCH ×4 (06:30→22:26)
[2022-03-09] MEDS ORDERED: FLU VACC QS2021-22(6MOS UP)/PF 60 MCG/0.5 ML SYRINGE IM ONE (09:00)
[2022-03-09] MEDS: METHOCARBAMOL 500 MG TABLET PO SCH ×2 (09:48→22:33)
[2022-03-09] MEDS: LIDOCAINE 5% TOPICAL PATCH TP SCH (09:49)
[2022-03-09] MEDS: DOCUSATE SODIUM 100 MG CAPSULE (FP) PO SCH (09:49)
[2022-03-09] MEDS ORDERED: INSULIN (LEVEMIR) 100 UNITS/ML UNITS SQ ONE (11:36)
[2022-03-09] MEDS ORDERED: morphine CARPU-JECT 2 MG/1 ML DISP.SYRIN IVPUSH PRN (12:30)
[2022-03-09] MEDS ORDERED: ONDANSETRON 4 MG/2 ML VIAL IVPUSH PRN (12:32)
[2022-03-09] MEDS: NICOTINE 14 MG/24 HOURS TOPICAL PATCH TD SCH (18:37)
[2022-03-09] MEDS: INSULIN (LEVEMIR) 100 UNITS/ML UNITS SQ SCH (22:26)
[2022-03-09] MEDS: CYCLOBENZAPRINE HCL 5 MG TABLET PO PRN (22:27)
[2022-03-09] MEDS: LIDOCAINE PATCH REMOVAL MC SCH (22:39)
[2022-03-10] MEDS: oxyCODONE HCL 5 MG TABLET PO PRN ×3 (05:54→20:23)
[2022-03-10] MEDS: GABAPENTIN 100 MG CAPSULE PO SCH (05:56)
[2022-03-10] MEDS: INSULIN SLIDING SCALE (NOVOLOG) 1 VIAL SQ SCH ×4 (06:18→23:38)
[2022-03-10] MEDS: METHOCARBAMOL 500 MG TABLET PO SCH ×2 (09:28→23:27)
[2022-03-10] MEDS: DOCUSATE SODIUM 100 MG CAPSULE (FP) PO SCH (09:29)
[2022-03-10] MEDS: NICOTINE 14 MG/24 HOURS TOPICAL PATCH TD SCH (09:29)
[2022-03-10] MEDS: LIDOCAINE 5% TOPICAL PATCH TP SCH (09:29)
[2022-03-10] MEDS: PANTOPRAZOLE 20 MG TABLET PO SCH (09:32)
[2022-03-10] MEDS: NAPROXEN 500 MG TABLET PO SCH ×2 (09:32→23:26)
[2022-03-10 11:12] LABS: BASO % 0.6 % (0-2.0); EOS % 2.7 % (0-4.5); HEMATOCRIT 36.6 % (32.4-45.2); HEMOGLOBIN 12.2 GM/dL (10.7-15.3); LYMPH % 21.8 % (8-40); MCH 28.4 pg (25.7-33.7); MCHC 33.3 g/dl (32.0-36.0); MEAN CELL VOLUME 85.3 fl (80-96); MEAN PLT VOLUME 7.6 fl (7.5-11.1); MONO % 6.6 % (3.8-10.2); NEUT % 68.3 % (42.8-82.8); PLATELET COUNT 355 10^3/uL (134-434); RBC 4.29 M/mm3 (3.60-5.2); RDW 13.7 % (11.6-15.6); WHITE BLOOD COUNT 6.7 K/mm3 (4.0-10.0)
[2022-03-10 11:36] LABS: CALCIUM 8.9 mg/dL (8.5-10.1)
[2022-03-10 11:37] LABS: BLOOD UREA NITROGEN 13.9 mg/dL (7-18)
[2022-03-10 11:41] LABS: CREATININE 0.7 mg/dL (0.55-1.3)
[2022-03-10] MEDS ORDERED: ACETAMINOPHEN 325 MG TABLET (FP) PO ONE (13:00)
[2022-03-10] MEDS: GABAPENTIN 400 MG CAPSULE PO SCH ×2 (14:01→23:27)
[2022-03-10] MEDS: INSULIN (LEVEMIR) 100 UNITS/ML UNITS SQ SCH (23:27)
[2022-03-10] MEDS: LIDOCAINE PATCH REMOVAL MC SCH (23:28)
[2022-03-11] MEDS: GABAPENTIN 400 MG CAPSULE PO SCH ×3 (05:33→22:56)
[2022-03-11] MEDS: oxyCODONE HCL 5 MG TABLET PO PRN ×3 (05:33→22:56)
[2022-03-11] MEDS: INSULIN SLIDING SCALE (NOVOLOG) 1 VIAL SQ SCH ×4 (06:34→23:05)
[2022-03-11 07:18] LABS: BASO % 0.5 % (0-2.0); EOS % 2.5 % (0-4.5); HEMATOCRIT 38.2 % (32.4-45.2); HEMOGLOBIN 12.5 GM/dL (10.7-15.3); LYMPH % 25.2 % (8-40); MCH 28.1 pg (25.7-33.7); MCHC 32.7 g/dl (32.0-36.0); MEAN CELL VOLUME 85.9 fl (80-96); MEAN PLT VOLUME 7.4 fl (7.5-11.1); MONO % 7.9 % (3.8-10.2); NEUT % 63.9 % (42.8-82.8); PLATELET COUNT 391 10^3/uL (134-434); RBC 4.44 M/mm3 (3.60-5.2); RDW 13.8 % (11.6-15.6); WHITE BLOOD COUNT 6.8 K/mm3 (4.0-10.0)
[2022-03-11 07:37] LABS: CALCIUM 8.9 mg/dL (8.5-10.1)
[2022-03-11 07:39] LABS: BLOOD UREA NITROGEN 14.7 mg/dL (7-18)
[2022-03-11 07:42] LABS: CREATININE 0.7 mg/dL (0.55-1.3)
[2022-03-11] MEDS: METHOCARBAMOL 500 MG TABLET PO SCH ×2 (09:14→22:56)
[2022-03-11] MEDS: NICOTINE 14 MG/24 HOURS TOPICAL PATCH TD SCH (09:15)
[2022-03-11] MEDS: NAPROXEN 500 MG TABLET PO SCH ×2 (09:15→22:56)
[2022-03-11] MEDS: PANTOPRAZOLE 20 MG TABLET PO SCH (09:15)
[2022-03-11] MEDS: DOCUSATE SODIUM 100 MG CAPSULE (FP) PO SCH (09:15)
[2022-03-11] MEDS: LIDOCAINE 5% TOPICAL PATCH TP SCH (09:16)
[2022-03-11] MEDS: INSULIN (LEVEMIR) 100 UNITS/ML UNITS SQ SCH (22:55)
[2022-03-11] MEDS: LIDOCAINE PATCH REMOVAL MC SCH (22:58)
[2022-03-12] MEDS: INSULIN SLIDING SCALE (NOVOLOG) 1 VIAL SQ SCH ×2 (06:21→10:44)
[2022-03-12] MEDS: GABAPENTIN 400 MG CAPSULE PO SCH (06:21)
[2022-03-12] MEDS: PANTOPRAZOLE 20 MG TABLET PO SCH (09:02)
[2022-03-12] MEDS: NAPROXEN 500 MG TABLET PO SCH ×2 (09:02→09:07)
[2022-03-12] MEDS: LIDOCAINE 5% TOPICAL PATCH TP SCH ×2 (09:02→09:07)
[2022-03-12] MEDS: NICOTINE 14 MG/24 HOURS TOPICAL PATCH TD SCH (09:02)
[2022-03-12] MEDS: METHOCARBAMOL 500 MG TABLET PO SCH (09:02)
[2022-03-12] MEDS: DOCUSATE SODIUM 100 MG CAPSULE (FP) PO SCH ×2 (09:02→09:07)
[2022-03-12] MEDS: oxyCODONE HCL 5 MG TABLET PO PRN (10:46)
[2022-03-12] MEDS: CYCLOBENZAPRINE HCL 5 MG TABLET PO PRN (10:46)
[2022-03-12 13:28] VITALS: BP 115/61; PULSE 104; TEMP 98.6
== END 2022-03-12 14:33 | disposition home or self-care (01) | DRG 347 ==
LOC: JER 06:36 → JERBED 10:05 → J7W 03-09 00:27
PROVIDERS: ADMIT Internal Medicine; ATTEND Internal Medicine
DX: M51.17 Intervertebral disc disorders with radiculopathy, lumbosacral region (principal); K21.9 Gastro-esophageal reflux disease without esophagitis; R26.2 Difficulty in walking, not elsewhere classified; E11.65 Type 2 diabetes mellitus with hyperglycemia
CPT/HCPCS: 36415; 72100-TC-FY; 72131-TC; 72148-TC; 80048; 82962; 83036; 84703; 85025; 90686; 97116-GP; 97162-GP; 99285-25; C9803-CS; G0008; U0003; U0005

== ENCOUNTER 2022-04-02 14:33 | Observation (INO) | payer OTHER ==
[2022-04-02 15:24] VITALS: BMI 34.3
[2022-04-02] MEDS ORDERED: morphine CARPU-JECT 4 MG/1 ML DISP.SYRIN IVPUSH ONE (15:45)
[2022-04-02] MEDS ORDERED: morphine SULFATE 4 MG/ML VIAL ONE (16:26)
[2022-04-02] MEDS ORDERED: ACETAMINOPHEN 1000 MG/100 ML BAG IVPB ONE (17:50)
[2022-04-02] MEDS ORDERED: KETOROLAC TROMETHAMINE 15 MG/ML VIAL IVPUSH ONE (17:50)
[2022-04-02] MEDS ORDERED: LIDOCAINE 5% TOPICAL PATCH TP ONE (17:50)
[2022-04-02] MEDS ORDERED: KETOROLAC TROMETHAMINE 15 MG/ML VIAL ONE (18:04)
[2022-04-02] MEDS ORDERED: ACETAMINOPHEN INJECTION 100 ML IVPB ONE (18:04)
[2022-04-02] MEDS ORDERED: LIDOCAINE 5% TOPICAL PATCH ONE (18:04)
[2022-04-02] MEDS ORDERED: diazePAM 5 MG TABLET PO ONE (18:05)
[2022-04-02] MEDS ORDERED: diazePAM 5 MG TABLET ONE (18:14)
[2022-04-02 21:21] LABS: ALBUMIN 3.5 g/dl (3.4-5.0); CALCIUM 8.8 mg/dL (8.5-10.1)
[2022-04-02 21:22] LABS: BLOOD UREA NITROGEN 10.2 mg/dL (7-18)
[2022-04-02 21:25] LABS: CREATININE 0.6 mg/dL (0.55-1.3)
[2022-04-02 21:26] LABS: BILIRUBIN,TOTAL 0.4 mg/dL (0.2-1); TOT PROT 6.5 g/dl (6.4-8.2)
[2022-04-02 21:31] LABS: BASO % 0.4 % (0-2.0); EOS % 2.1 % (0-4.5); HEMATOCRIT 36.2 % (32.4-45.2); HEMOGLOBIN 12.1 GM/dL (10.7-15.3); LYMPH % 20.2 % (8-40); MCHC 33.4 g/dl (32.0-36.0); MEAN PLT VOLUME 8.1 fl (7.5-11.1); MONO % 6.7 % (3.8-10.2); NEUT % 70.6 % (42.8-82.8); PLATELET COUNT 377 10^3/uL (134-434); RBC 4.31 M/mm3 (3.60-5.2); RDW 13.8 % (11.6-15.6); WHITE BLOOD COUNT 10.5 K/mm3 (4.0-10.0)
[2022-04-02] MEDS ORDERED: ALBUTEROL SO4 HFA INHALER IH PRN (22:03)
[2022-04-02] MEDS: KETOROLAC TROMETHAMINE 15 MG/ML VIAL IVPUSH PRN (23:58)
[2022-04-03] MEDS: ACETAMINOPHEN 1000 MG/100 ML BAG IVPB PRN ×2 (00:16→12:06)
[2022-04-03] MEDS ORDERED: diazePAM 5 MG TABLET PO ONE (04:16)
[2022-04-03] MEDS: LIDOCAINE PATCH REMOVAL MC SCH ×2 (06:28→22:25)
[2022-04-03] MEDS ORDERED: PANTOPRAZOLE 20 MG TABLET PO PRN (08:40)
[2022-04-03] MEDS ORDERED: oxyCODONE HCL 5 MG TABLET PO PRN (08:40)
[2022-04-03 09:37] LABS: BASO % 0.4 % (0-2.0); EOS % 3.5 % (0-4.5); HEMOGLOBIN 11.9 GM/dL (10.7-15.3); LYMPH % 18.2 % (8-40); MCH 27.4 pg (25.7-33.7); MCHC 32.2 g/dl (32.0-36.0); MEAN CELL VOLUME 85.1 fl (80-96); MONO % 6.6 % (3.8-10.2); NEUT % 71.3 % (42.8-82.8); PLATELET COUNT 408 10^3/uL (134-434); RBC 4.35 M/mm3 (3.60-5.2); RDW 13.9 % (11.6-15.6); WHITE BLOOD COUNT 8.2 K/mm3 (4.0-10.0)
[2022-04-03 10:04] LABS: CALCIUM 8.9 mg/dL (8.5-10.1)
[2022-04-03 10:05] LABS: BLOOD UREA NITROGEN 16.4 mg/dL (7-18)
[2022-04-03 10:08] LABS: CREATININE 0.6 mg/dL (0.55-1.3)
[2022-04-03 10:09] LABS: ALBUMIN 3.6 g/dl (3.4-5.0); BILIRUBIN,TOTAL 0.8 mg/dL (0.2-1)
[2022-04-03 10:10] LABS: TOT PROT 6.5 g/dl (6.4-8.2)
[2022-04-03] MEDS: IBUPROFEN 400 MG TABLET (FP) PO SCH ×3 (10:13→19:13)
[2022-04-03] MEDS: LIDOCAINE 5% TOPICAL PATCH TP SCH (10:14)
[2022-04-03] MEDS: NICOTINE 14 MG/24 HOURS TOPICAL PATCH TD SCH (10:15)
[2022-04-03] MEDS: DOCUSATE SODIUM 100 MG CAPSULE (FP) PO SCH (10:15)
[2022-04-03] MEDS ORDERED: morphine SULFATE 4 MG/ML VIAL IVPUSH PRN (12:11)
[2022-04-03] MEDS: INSULIN SLIDING SCALE (NOVOLOG) 1 VIAL SQ SCH ×3 (12:16→22:25)
[2022-04-03] MEDS: glipiZIDE 10 MG TABLET (FP) PO SCH ×2 (12:56→14:56)
[2022-04-03] MEDS: RAMIPRIL 5 MG CAPSULE PO SCH ×2 (12:56→14:56)
[2022-04-03] MEDS: GABAPENTIN 400 MG CAPSULE PO SCH ×2 (14:28→22:25)
[2022-04-03] MEDS: CYCLOBENZAPRINE HCL 10 MG TABLET (FP) PO SCH (22:24)
[2022-04-03] MEDS: INSULIN (LEVEMIR) 100 UNITS/ML UNITS SQ SCH (22:25)
[2022-04-03] MEDS: BACITRACIN 15 GM TUBE TOPICAL OINTMENT TP SCH (23:54)
[2022-04-04] MEDS: ACETAMINOPHEN 1000 MG/100 ML BAG IVPB PRN (00:14)
[2022-04-04] MEDS: oxyCODONE HCL 5 MG TABLET PO PRN ×3 (00:15→16:05)
[2022-04-04] MEDS: KETOROLAC TROMETHAMINE 15 MG/ML VIAL IVPUSH PRN ×3 (00:15→22:20)
[2022-04-04] MEDS: glipiZIDE 10 MG TABLET (FP) PO SCH (06:18)
[2022-04-04] MEDS: GABAPENTIN 400 MG CAPSULE PO SCH ×3 (06:18→22:17)
[2022-04-04] MEDS: INSULIN SLIDING SCALE (NOVOLOG) 1 VIAL SQ SCH ×4 (06:25→22:20)
[2022-04-04] MEDS: IBUPROFEN 400 MG TABLET (FP) PO SCH ×3 (08:03→17:12)
[2022-04-04] MEDS: DOCUSATE SODIUM 100 MG CAPSULE (FP) PO SCH (09:31)
[2022-04-04] MEDS: NICOTINE 14 MG/24 HOURS TOPICAL PATCH TD SCH (09:32)
[2022-04-04] MEDS: LIDOCAINE 5% TOPICAL PATCH TP SCH (09:32)
[2022-04-04] MEDS: RAMIPRIL 2.5 MG CAPSULE PO SCH (11:16)
[2022-04-04] MEDS: BACITRACIN 15 GM TUBE TOPICAL OINTMENT TP SCH ×2 (14:09→22:33)
[2022-04-04] MEDS: AMOX TR/POT CLAV 875MG/125MG TABLETS (FP) PO SCH (17:13)
[2022-04-04] MEDS: LIDOCAINE PATCH REMOVAL MC SCH (22:17)
[2022-04-04] MEDS: INSULIN (LEVEMIR) 100 UNITS/ML UNITS SQ SCH (22:17)
[2022-04-04] MEDS: CYCLOBENZAPRINE HCL 10 MG TABLET (FP) PO SCH (22:17)
[2022-04-05] MEDS: oxyCODONE HCL 5 MG TABLET PO PRN (05:12)
[2022-04-05] MEDS: GABAPENTIN 400 MG CAPSULE PO SCH ×3 (05:13→22:13)
[2022-04-05] MEDS: glipiZIDE 10 MG TABLET (FP) PO SCH (06:54)
[2022-04-05] MEDS: INSULIN SLIDING SCALE (NOVOLOG) 1 VIAL SQ SCH ×4 (06:55→22:14)
[2022-04-05 07:32] LABS: BASO % 0.5 % (0-2.0); EOS % 3.7 % (0-4.5); HEMATOCRIT 36.2 % (32.4-45.2); HEMOGLOBIN 12.1 GM/dL (10.7-15.3); LYMPH % 20.5 % (8-40); MCH 28.2 pg (25.7-33.7); MCHC 33.5 g/dl (32.0-36.0); MEAN PLT VOLUME 7.5 fl (7.5-11.1); MONO % 9.3 % (3.8-10.2); PLATELET COUNT 375 10^3/uL (134-434); RBC 4.31 M/mm3 (3.60-5.2); RDW 13.6 % (11.6-15.6); WHITE BLOOD COUNT 7.4 K/mm3 (4.0-10.0)
[2022-04-05 07:57] LABS: BLOOD UREA NITROGEN 19.4 mg/dL (7-18)
[2022-04-05 08:00] LABS: CREATININE 0.7 mg/dL (0.55-1.3)
[2022-04-05] MEDS: AMOX TR/POT CLAV 875MG/125MG TABLETS (FP) PO SCH ×2 (08:19→18:19)
[2022-04-05] MEDS: IBUPROFEN 400 MG TABLET (FP) PO SCH ×3 (08:20→18:19)
[2022-04-05] MEDS: RAMIPRIL 2.5 MG CAPSULE PO SCH (10:48)
[2022-04-05] MEDS: DOCUSATE SODIUM 100 MG CAPSULE (FP) PO SCH (10:48)
[2022-04-05] MEDS: LIDOCAINE 5% TOPICAL PATCH TP SCH (10:49)
[2022-04-05] MEDS: NICOTINE 14 MG/24 HOURS TOPICAL PATCH TD SCH (10:49)
[2022-04-05] MEDS: BACITRACIN 15 GM TUBE TOPICAL OINTMENT TP SCH (10:49)
[2022-04-05] MEDS: KETOROLAC TROMETHAMINE 15 MG/ML VIAL IVPUSH PRN ×2 (11:23→18:20)
[2022-04-05] MEDS ORDERED: INSULIN (NOVOLOG) ASPART 100 UNITS/ML 10ML VIAL ONE (11:26)
[2022-04-05] MEDS: CYCLOBENZAPRINE HCL 10 MG TABLET (FP) PO SCH (22:13)
[2022-04-05] MEDS: INSULIN (LEVEMIR) 100 UNITS/ML UNITS SQ SCH (22:14)
[2022-04-05] MEDS: LIDOCAINE PATCH REMOVAL MC SCH (22:14)
[2022-04-06] MEDS: KETOROLAC TROMETHAMINE 15 MG/ML VIAL IVPUSH PRN ×3 (03:33→21:21)
[2022-04-06] MEDS: GABAPENTIN 400 MG CAPSULE PO SCH ×3 (06:33→21:20)
[2022-04-06] MEDS: glipiZIDE 10 MG TABLET (FP) PO SCH (06:33)
[2022-04-06] MEDS: INSULIN SLIDING SCALE (NOVOLOG) 1 VIAL SQ SCH ×4 (06:38→21:20)
[2022-04-06] MEDS: AMOX TR/POT CLAV 875MG/125MG TABLETS (FP) PO SCH ×2 (08:31→17:40)
[2022-04-06] MEDS: IBUPROFEN 400 MG TABLET (FP) PO SCH ×3 (08:31→17:40)
[2022-04-06] MEDS ORDERED: LORazepam 1 MG TABLET PO ONE (09:00)
[2022-04-06] MEDS: LIDOCAINE 5% TOPICAL PATCH TP SCH (09:13)
[2022-04-06] MEDS: DOCUSATE SODIUM 100 MG CAPSULE (FP) PO SCH (09:13)
[2022-04-06] MEDS: RAMIPRIL 2.5 MG CAPSULE PO SCH (09:13)
[2022-04-06] MEDS: NICOTINE 14 MG/24 HOURS TOPICAL PATCH TD SCH (09:13)
[2022-04-06] MEDS: CYCLOBENZAPRINE HCL 10 MG TABLET (FP) PO SCH (21:19)
[2022-04-06] MEDS: INSULIN (LEVEMIR) 100 UNITS/ML UNITS SQ SCH (21:20)
[2022-04-06] MEDS: LIDOCAINE PATCH REMOVAL MC SCH (21:29)
[2022-04-07] MEDS: GABAPENTIN 400 MG CAPSULE PO SCH (06:24)
[2022-04-07] MEDS: INSULIN SLIDING SCALE (NOVOLOG) 1 VIAL SQ SCH ×2 (06:24→10:54)
[2022-04-07] MEDS: glipiZIDE 10 MG TABLET (FP) PO SCH (06:25)
[2022-04-07 07:00] VITALS: BP 108/59; PULSE 106; TEMP 99.5
[2022-04-07] MEDS: AMOX TR/POT CLAV 875MG/125MG TABLETS (FP) PO SCH (08:55)
[2022-04-07] MEDS: IBUPROFEN 400 MG TABLET (FP) PO SCH ×2 (08:55→11:13)
[2022-04-07] MEDS: DOCUSATE SODIUM 100 MG CAPSULE (FP) PO SCH (09:55)
[2022-04-07] MEDS: LIDOCAINE 5% TOPICAL PATCH TP SCH (09:55)
[2022-04-07] MEDS: NICOTINE 14 MG/24 HOURS TOPICAL PATCH TD SCH (09:55)
[2022-04-07] MEDS: RAMIPRIL 2.5 MG CAPSULE PO SCH (09:55)
[2022-04-07] MEDS ORDERED: BACITRACIN 15 GM TUBE TOPICAL OINTMENT TP SCH (10:00)
[2022-04-07] MEDS: KETOROLAC TROMETHAMINE 15 MG/ML VIAL IVPUSH PRN (10:03)
== END 2022-04-07 11:34 | disposition home or self-care (01) ==
LOC: JER 14:33 → JERBED 18:05 → INTOOBSV 18:05 → J8W 21:52
PROVIDERS: ADMIT Hospitalist; ATTEND Internal Medicine
PROC: 3E033NZ Introduction of Analgesics, Hypnotics, Sedatives into Peripheral Vein, Percutaneous Approach (ICD-10-PCS; principal; 2022-04-02)
PROC: 3E013VG Introduction of Insulin into Subcutaneous Tissue, Percutaneous Approach (ICD-10-PCS; 2022-04-02)
PROC: 3E0333Z Introduction of Anti-inflammatory into Peripheral Vein, Percutaneous Approach (ICD-10-PCS; 2022-04-02)
DX: M72.2 Plantar fascial fibromatosis (principal); M79.672 Pain in left foot; J40 Bronchitis, not specified as acute or chronic; G89.29 Other chronic pain; E11.9 Type 2 diabetes mellitus without complications; M54.50 Low back pain, unspecified; M51.86 Other intervertebral disc disorders, lumbar region; Z88.8 Allergy status to other drugs, medicaments and biological substances; K21.9 Gastro-esophageal reflux disease without esophagitis; Z87.440 Personal history of urinary (tract) infections; R26.2 Difficulty in walking, not elsewhere classified; F17.210 Nicotine dependence, cigarettes, uncomplicated; E66.8 Other obesity; Z68.34 Body mass index [BMI] 34.0-34.9, adult
CPT/HCPCS: 36415; 73630-TC-LT; 73630-TC-RT-FY; 73718-TC-LT; 80048; 80053; 82962; 83036; 85025; 86140; 96372; 96374; 96375; 96376; 97116-GP; 97161-GP; 99285-25; C9803-CS; G0378; U0003; U0005

== ENCOUNTER 2022-04-16 13:11 | Inpatient (IN) | payer OTHER ==
[2022-04-16 13:25] VITALS: BMI 34.9
[2022-04-16] MEDS ORDERED: morphine CARPU-JECT 4 MG/1 ML DISP.SYRIN IVPUSH ONE (13:58)
[2022-04-16] MEDS ORDERED: ACETAMINOPHEN 1000 MG/100 ML BAG IVPB ONE (14:02)
[2022-04-16] MEDS ORDERED: morphine SULFATE 4 MG/ML VIAL ONE (14:11)
[2022-04-16] MEDS ORDERED: ACETAMINOPHEN INJECTION 100 ML IVPB ONE (14:11)
[2022-04-16] MEDS ORDERED: HYDROmorphone HCL CARPU-JECT 2 MG/1 ML DISP.SYRIN IVPUSH ONE (15:26)
[2022-04-16 15:39] LABS: BASO % 0.4 % (0-2.0); EOS % 3.7 % (0-4.5); HEMOGLOBIN 13.6 GM/dL (10.7-15.3); LYMPH % 21.2 % (8-40); MCH 27.3 pg (25.7-33.7); MCHC 32.4 g/dl (32.0-36.0); MEAN CELL VOLUME 84.1 fl (80-96); MEAN PLT VOLUME 7.5 fl (7.5-11.1); NEUT % 68.7 % (42.8-82.8); PLATELET COUNT 567 10^3/uL (134-434); RBC 4.99 M/mm3 (3.60-5.2); RDW 13.3 % (11.6-15.6); WHITE BLOOD COUNT 10.4 K/mm3 (4.0-10.0)
[2022-04-16 15:46] LABS: INR 0.96 (0.83-1.09)
[2022-04-16 15:49] LABS: ACTIVATED PTT 28.6 SECONDS (25.2-36.5)
[2022-04-16 15:50] LABS: BLOOD UREA NITROGEN 10.2 mg/dL (7-18)
[2022-04-16 15:53] LABS: CREATININE 0.7 mg/dL (0.55-1.3)
[2022-04-16 15:55] LABS: BILIRUBIN,TOTAL 0.3 mg/dL (0.2-1)
[2022-04-16] MEDS ORDERED: HYDROmorphone HCl 2 MG/ML VIAL ONE ×2 (16:06→19:56)
[2022-04-16 16:12] LABS: ALBUMIN 4.4 g/dl (3.4-5.0)
[2022-04-16] MEDS ORDERED: DOCUSATE SODIUM 100 MG CAPSULE (FP) PO PRN (18:20)
[2022-04-16] MEDS ORDERED: morphine SULFATE 4 MG/ML VIAL IVPUSH PRN (18:20)
[2022-04-16] MEDS ORDERED: ACETAMINOPHEN 325 MG TABLET (FP) PO PRN (18:20)
[2022-04-16] MEDS ORDERED: ONDANSETRON 4 MG/2 ML VIAL IVPUSH PRN (18:23)
[2022-04-16] MEDS ORDERED: HYDROmorphone HCl 2 MG/ML VIAL IVPUSH PRN (18:24)
[2022-04-16] MEDS ORDERED: ALBUTEROL SO4 HFA INHALER IH PRN (18:27)
[2022-04-16] MEDS ORDERED: SODIUM CHLORIDE 1,000 ML IV SCH (18:30)
[2022-04-16] MEDS ORDERED: LIDOCAINE 5% TOPICAL PATCH TP SCH (18:30)
[2022-04-16] MEDS ORDERED: LIDOCAINE 5% TOPICAL PATCH ONE (19:59)
[2022-04-16] MEDS ORDERED: LIDOCAINE PATCH REMOVAL MC SCH (22:00)
[2022-04-16] MEDS ORDERED: INSULIN (LEVEMIR) 100 UNITS/ML UNITS SQ SCH (22:00)
[2022-04-16] MEDS ORDERED: INSULIN SLIDING SCALE (NOVOLOG) 1 VIAL SQ SCH (22:00)
[2022-04-17] MEDS ORDERED: BUPIVACAINE HCL/PF 0.5% (5MG/ML) 10 ML VIAL ONE (07:12)
[2022-04-17] MEDS ORDERED: THROMBIN (BOVINE) 20,000 UNIT VIAL TP ONE (07:12)
[2022-04-17] MEDS ORDERED: VANCOMYCIN 1,000 MG VIAL (RESTRICTED TO ID ONLY) ONE (07:12)
[2022-04-17] MEDS ORDERED: BACITRACIN 15 GM TUBE TOPICAL OINTMENT ONE (07:12)
[2022-04-17] MEDS ORDERED: LIDOCAINE 1%/EPI 1:100000 (20 ML MULTI DOSE VIAL) ONE (07:13)
[2022-04-17] MEDS ORDERED: ceFAZolin SODIUM 1 GM VIAL IVPB ONE ×3 (07:24→08:50)
[2022-04-17] MEDS ORDERED: LIDOCAINE 1%/EPI 1:100000 (20 ML MULTI DOSE VIAL) IJ ONE ×3 (07:24→08:40)
[2022-04-17] MEDS ORDERED: MIDAZOLAM HCL 2 MG/2 ML SINGLE DOSE VIAL ONE ×2 (07:26→09:52)
[2022-04-17] MEDS ORDERED: PROPOFOL 20 ML ONE ×4 (07:26→10:16)
[2022-04-17] MEDS ORDERED: ROCURONIUM BROMIDE 50 MG/5 ML SYRINGE ONE ×2 (07:26→09:25)
[2022-04-17] MEDS ORDERED: SUCCINYLCHOLINE CHLORIDE 200 MG/10 ML SYRINGE ONE ×3 (07:26→10:09)
[2022-04-17] MEDS ORDERED: VANCOMYCIN 1 GM in D5W (PRE-DOCKED) 1,000 MG/250 ML IVPB ONE ×3 (07:33→08:51)
[2022-04-17] MEDS ORDERED: THROMBIN (BOVINE) 5,000 UNIT VIAL TP ONE ×3 (07:33→09:05)
[2022-04-17] MEDS ORDERED: GENTAMICIN SO4 80 MG/2 ML VIAL IVPB ONE ×3 (07:33→09:07)
[2022-04-17] MEDS ORDERED: HYDROGEN PEROXIDE 473 ML PO ONE ×3 (07:34→09:07)
[2022-04-17] MEDS ORDERED: DEXMEDETOMIDINE HCL 200 MCG/2 ML IVPB ONE (07:43)
[2022-04-17] MEDS ORDERED: ACETAMINOPHEN INJECTION 100 ML IVPB ONE (07:43)
[2022-04-17] MEDS ORDERED: BUPIVACAINE LIPOSOME/PF (EXPAREL) 266 MG/20 ML VIAL ONE (07:54)
[2022-04-17 08:27] LABS: ALBUMIN 3.9 g/dl (3.4-5.0); CALCIUM 9.4 mg/dL (8.5-10.1)
[2022-04-17 08:28] LABS: BLOOD UREA NITROGEN 11.5 mg/dL (7-18); MAGNESIUM 1.9 mg/dL (1.8-2.4)
[2022-04-17 08:30] LABS: CREATININE 0.5 mg/dL (0.55-1.3)
[2022-04-17 08:32] LABS: BASO % 0.5 % (0-2.0); BILIRUBIN,TOTAL 0.6 mg/dL (0.2-1); EOS % 4.6 % (0-4.5); HEMOGLOBIN 12.6 GM/dL (10.7-15.3); LYMPH % 23.1 % (8-40); MCH 27.6 pg (25.7-33.7); MCHC 33.2 g/dl (32.0-36.0); MEAN CELL VOLUME 83.3 fl (80-96); MEAN PLT VOLUME 7.7 fl (7.5-11.1); MONO % 8.3 % (3.8-10.2); NEUT % 63.5 % (42.8-82.8); PLATELET COUNT 483 10^3/uL (134-434); RBC 4.56 M/mm3 (3.60-5.2); RDW 13.3 % (11.6-15.6); TOT PROT 7.1 g/dl (6.4-8.2); WHITE BLOOD COUNT 8.4 K/mm3 (4.0-10.0)
[2022-04-17 08:34] LABS: INR 1.06 (0.83-1.09); PROTHROMBIN TIME (PATIENT) 12.2 SEC (9.7-13.0)
[2022-04-17] MEDS ORDERED: BENZOIN/ALOE VERA/STORAX/TOLU 58 ML BOTTLE ONE (08:35)
[2022-04-17] MEDS ORDERED: BUPIVACAINE LIPOSOME/PF (EXPAREL) 266 MG/20 ML VIAL NR ONE ×2 (09:15→10:00)
[2022-04-17] MEDS ORDERED: BUPIVACAINE HCL/PF 0.5% (5MG/ML) 10 ML VIAL IJ ONE ×2 (09:16→10:00)
[2022-04-17] MEDS ORDERED: KETAMINE HCL 200 MG/20 ML VIAL ONE (09:42)
[2022-04-17] MEDS ORDERED: ESMOLOL 2500 MG/250 ML 2,500,000 MCG/250 ML INFUS.BAG IVPB ONE (09:50)
[2022-04-17] MEDS ORDERED: RAMIPRIL 5 MG CAPSULE PO SCH (10:00)
[2022-04-17] MEDS: LACTATED RINGERS SOLUTION 1,000 ML/1,000 ML INFUS.BAG IV SCH ×2 (10:30→18:24)
[2022-04-17] MEDS ORDERED: LACTATED RINGERS SOLUTION 1,000 ML IV SCH ×2 (10:45→10:58)
[2022-04-17] MEDS ORDERED: ONDANSETRON 4 MG/2 ML VIAL IVPUSH PRN ×2 (10:58)
[2022-04-17] MEDS ORDERED: ALBUTEROL SO4 HFA INHALER IH PRN (10:58)
[2022-04-17] MEDS ORDERED: DOCUSATE SODIUM 100 MG CAPSULE (FP) PO PRN (10:58)
[2022-04-17] MEDS ORDERED: diphenhydrAMINE HCL 25 MG CAPSULE (FP) PO PRN (10:58)
[2022-04-17] MEDS: INSULIN SLIDING SCALE (NOVOLOG) 1 VIAL SQ SCH ×3 (12:45→22:16)
[2022-04-17] MEDS: DOCUSATE SODIUM 100 MG CAPSULE (FP) PO SCH ×2 (14:00→21:58)
[2022-04-17] MEDS: ceFAZolin SODIUM 1 GM VIAL ONE ×2 (16:30→16:39)
[2022-04-17] MEDS: CEFAZOLIN 1 GM/D5W 1 GM/50 ML BAG IVPB SCH ×2 (16:39)
[2022-04-17] MEDS ORDERED: LIDOCAINE PATCH REMOVAL MC SCH (22:00)
[2022-04-17] MEDS ORDERED: oxyCODONE HCL 5 MG TABLET PO PRN ×2 (22:08)
[2022-04-17] MEDS: LIDOCAINE PATCH REMOVAL MC SCH (22:17)
[2022-04-17] MEDS: INSULIN (LEVEMIR) 100 UNITS/ML UNITS SQ SCH (22:23)
[2022-04-17] MEDS: ACETAMINOPHEN 1000 MG/100 ML BAG IVPB SCH (22:59)
[2022-04-18] MEDS ORDERED: oxyCODONE HCL 5 MG TABLET PO PRN ×4 (01:24→08:00)
[2022-04-18] MEDS: ACETAMINOPHEN 1000 MG/100 ML BAG IVPB SCH (04:30)
[2022-04-18] MEDS: INSULIN SLIDING SCALE (NOVOLOG) 1 VIAL SQ SCH ×4 (06:48→22:05)
[2022-04-18] MEDS ORDERED: HEPARIN NA (PORCINE) 5,000 UNITS/ML 1ML VIAL SQ SCH (08:00)
[2022-04-18] MEDS ORDERED: FOLIC ACID 1 MG TABLET (FP) PO SCH (10:00)
[2022-04-18] MEDS ORDERED: FERROUS SO4 325 MG TABLET (FP) PO SCH (10:00)
[2022-04-18] MEDS: LIDOCAINE 5% TOPICAL PATCH TP SCH (11:24)
[2022-04-18] MEDS: RAMIPRIL 5 MG CAPSULE PO SCH (12:55)
[2022-04-18] MEDS: oxyCODONE HCL 5 MG TABLET PO PRN (15:50)
[2022-04-18] MEDS: INSULIN (LEVEMIR) 100 UNITS/ML UNITS SQ SCH (22:03)
[2022-04-18] MEDS: LIDOCAINE PATCH REMOVAL MC SCH (22:04)
[2022-04-19] MEDS: oxyCODONE HCL 5 MG TABLET PO PRN (02:55)
[2022-04-19] MEDS: INSULIN SLIDING SCALE (NOVOLOG) 1 VIAL SQ SCH ×4 (06:04→21:31)
[2022-04-19] MEDS: LIDOCAINE 5% TOPICAL PATCH TP SCH (10:06)
[2022-04-19] MEDS: RAMIPRIL 5 MG CAPSULE PO SCH (10:06)
[2022-04-19] MEDS: INSULIN (LEVEMIR) 100 UNITS/ML UNITS SQ SCH (21:29)
[2022-04-19] MEDS: LIDOCAINE PATCH REMOVAL MC SCH (21:38)
[2022-04-20] MEDS: INSULIN SLIDING SCALE (NOVOLOG) 1 VIAL SQ SCH ×4 (06:01→21:34)
[2022-04-20] MEDS: RAMIPRIL 5 MG CAPSULE PO SCH (09:56)
[2022-04-20] MEDS: LIDOCAINE 5% TOPICAL PATCH TP SCH (09:56)
[2022-04-20] MEDS: oxyCODONE HCL 5 MG TABLET PO PRN (21:34)
[2022-04-20] MEDS: INSULIN (LEVEMIR) 100 UNITS/ML UNITS SQ SCH (21:34)
[2022-04-20] MEDS: LIDOCAINE PATCH REMOVAL MC SCH (21:36)
[2022-04-21] MEDS: oxyCODONE HCL 5 MG TABLET PO PRN (06:01)
[2022-04-21] MEDS: INSULIN SLIDING SCALE (NOVOLOG) 1 VIAL SQ SCH ×2 (06:01→11:32)
[2022-04-21 06:21] VITALS: BP 119/70; PULSE 105; TEMP 98.2
[2022-04-21] MEDS: LIDOCAINE 5% TOPICAL PATCH TP SCH (09:52)
[2022-04-21] MEDS: RAMIPRIL 5 MG CAPSULE PO SCH (09:52)
== END 2022-04-21 13:50 | disposition home or self-care (01) | DRG 304 ==
LOC: JER 13:11 → JERBED 16:22 → J4W 04-17 18:43
PROVIDERS: ADMIT Internal Medicine; ATTEND Internal Medicine
PROC: 0SB40ZZ Excision of Lumbosacral Disc, Open Approach (ICD-10-PCS; 2022-04-17)
PROC: 01NB0ZZ Release Lumbar Nerve, Open Approach (ICD-10-PCS; 2022-04-17)
PROC: 0SG3071 Fusion of Lumbosacral Joint with Autologous Tissue Substitute, Posterior Approach, Posterior Column, Open Approach (ICD-10-PCS; principal; 2022-04-17 08:00)
DX: M51.27 Other intervertebral disc displacement, lumbosacral region (principal); E66.01 Morbid (severe) obesity due to excess calories; I10 Essential (primary) hypertension; E11.9 Type 2 diabetes mellitus without complications; F17.210 Nicotine dependence, cigarettes, uncomplicated; J45.909 Unspecified asthma, uncomplicated; M54.30 Sciatica, unspecified side; Z68.35 Body mass index [BMI] 35.0-35.9, adult
CPT/HCPCS: 36415; 76000-TC-FY; 80053; 82962; 83735; 84703; 85025; 85610; 85730; 86850; 86900; 86901; 88304-TC; 93005; 93010; 94760; 97010-GP; 97110-GP; 97116-GP; 97161-GP; 99285-25; C9803-CS; G0283-GP; U0003; U0005

== ENCOUNTER 2024-06-01 15:24 | Emergency (ER) | payer OTHER ==
[2024-06-01 15:41] VITALS: BP 130/66; PULSE 101; RESP 17; TEMP 98; BMI 31.0
[2024-06-01] MEDS ORDERED: ACETAMINOPHEN 500 MG TABLET (FP) ONE (16:16)
[2024-06-01] MEDS ORDERED: CYCLOBENZAPRINE HCL 10 MG TABLET (FP) ONE (16:16)
[2024-06-01] MEDS: CYCLOBENZAPRINE HCL 10 MG TABLET (FP) PO ONE (16:19)
[2024-06-01] MEDS: ACETAMINOPHEN 325 MG TABLET (FP) PO ONE (16:19)
[2024-06-01] MEDS ORDERED: LIDOCAINE 4% PATCH TP ONE (18:08)
[2024-06-01] MEDS: LIDOCAINE 5% TOPICAL PATCH TP ONE (18:12)
[2024-06-02] MEDS ORDERED: LIDOCAINE PATCH REMOVAL MC SCH (06:00)
== END 2024-06-01 18:13 | disposition home or self-care (01) ==
LOC: JER 15:24
DX: S16.1XXA Strain of muscle, fascia and tendon at neck level, initial encounter (principal); V49.40XA Driver injured in collision with unspecified motor vehicles in traffic accident, initial encounter
CPT/HCPCS: 72125-TC; 99284-25